=== PATIENT | male | born 1985 | race Caucasian/White ===

== ENCOUNTER 2022-07-06 17:32 | Emergency (ER) | payer BC ==
[2022-07-06] MEDS ORDERED: Sodium Chloride 0.9% 10 ML Syringe FLUSH PRN (17:52)
== END 2022-07-06 19:14 | disposition home or self-care (01) ==
LOC: MERGE 17:32 → JD.ED 17:32
DX: R07.89 Other chest pain (principal)
CPT/HCPCS: 36415; 71045; 71045-26; 80053; 83735; 83880; 84484; 85025; 85610; 85730; 93005; 99285

== ENCOUNTER 2023-01-03 08:55 | Emergency (ER) | payer BC ==
[2023-01-03 09:58] LABS: BASOPHILS ABSOLUTE AUTO 0.03 K/mm3 (0.01-0.08); BASOPHILS PERCENT AUTO 0.6 % (0.1-1.2); EOSINOPHILS ABSOLUTE AUTO 0.15 K/mm3 (0.04-0.54); EOSINOPHILS PERCENT AUTO 2.9 (0.8-7.0); IMMATURE GRAN ABSOLUTE AUTO 0.01 K/mm3 (0.00-0.10); IMMATURE GRAN PERCENT AUTO 0.2 % (<=1.0); LYMPHOCYTES ABSOLUTE AUTO 1.19 K/mm3 (1.32-3.57); LYMPHOCYTES PERCENT AUTO 22.9 % (21.8-53.1); MEAN CORPUSCULAR HEMOGLOBIN 30.4 pg (25.7-32.2); MEAN CORPUSCULAR HGB CONC 34.8 g/dl (32.2-35.5); MEAN CORPUSCULAR VOLUME 87.3 fl (79.0-92.2); MEAN PLATELET VOLUME 10.3 fl (9.4-12.3); MONOCYTES ABSOLUTE AUTO 0.35 K/mm3 (0.30-0.82); MONOCYTES PERCENT AUTO 6.7 % (5.3-12.2); NEUTROPHILS ABSOLUTE AUTO 3.47 K/mm3 (1.78-5.38); NEUTROPHILS PERCENT AUTO 66.7 % (34.0-67.9); PLATELET COUNT,PLT 273 K/mm3 (163-337); RED BLOOD CELL COUNT 5.27 M/mm3 (4.63-6.08)
[2023-01-03 10:18] LABS: A/G RATIO 1.1 (1-2); ALBUMIN 4.2 g/dl (3.4-5.0); BILIRUBIN TOTAL 0.5 mg/dL (0.2-1.0); CALCIUM 9.2 mg/dL (8.5-10.1); EST CRCL DRUG DOSING (CG) 93.71 mL/min
== END 2023-01-03 14:55 | disposition home or self-care (01) ==
LOC: JD.ED 08:55
DX: R00.2 Palpitations (principal); I10 Essential (primary) hypertension; Z87.891 Personal history of nicotine dependence; Z79.899 Other long term (current) drug therapy
CPT/HCPCS: 36415; 80053; 83735; 84484; 85025; 93005; 93246; 99285

== ENCOUNTER 2024-08-20 07:09 | Day surgery (SDC) | payer BC ==
[~2024-08-20 07:09] MED LIST: Sodium Chloride 0.9% 10 ML Syringe FLUSH PRN; Sodium Chloride 0.9% 10 ML Syringe FLUSH SCH
[2024-08-20] MEDS ORDERED: Lidocaine 2% 5 ML SDV ONE (07:11)
[2024-08-20] MEDS ORDERED: Propofol 200 MG/20 ML SDV ONE ×3 (07:12→08:35)
[2024-08-20] MEDS: Lactated Ringers 1,000 ML IV SCH (07:30)
[2024-08-20] MEDS: Bupivacaine 0.5% 30 ML SDV ONE (09:01)
== END 2024-08-20 10:00 | disposition home or self-care (01) ==
LOC: JD.SDS 07:09
PROVIDERS: ATTEND Surgery
DX: D12.4 Benign neoplasm of descending colon (principal); D12.3 Benign neoplasm of transverse colon; K64.8 Other hemorrhoids; K62.1 Rectal polyp; I10 Essential (primary) hypertension; E11.9 Type 2 diabetes mellitus without complications; Z79.84 Long term (current) use of oral hypoglycemic drugs; Z79.899 Other long term (current) drug therapy
CPT/HCPCS: 45380; 46221; J0665; J2704; J7120; 00811; J3490